=== PATIENT | male | born 1955 | race American Indian/Alaskan Native ===

== ENCOUNTER 2018-02-21 12:00 | Day surgery (SDC) | payer BC ==
[2018-02-21] MEDS: Ringers Lactate 1,000 ML IV ONE ×2 (12:28→12:55)
[2018-02-21] MEDS ORDERED: LIDOCAINE 1% MPF 5 ML VIAL ONE (13:14)
[2018-02-21] MEDS ORDERED: PROPOFOL 200 MG/20 ML VIAL IV ONE (13:14)
--- NOTE | 2018-02-21 14:10 | ENDO RPT ---
[address], [address] FLEXIBLE SIGMOIDOSCOPY PROCEDURE REPORT EXAM DATE: 02/21/2018 PATIENT NAME: Romain Bentley MR #: [id number] BIRTHDATE: 1955 ATTENDING: Guille Garcia Dr STATUS: outpatient SALES COMPENSATION ANALYST: Cecy Patel, Rae Watts RN, and Huma Patel INDICATIONS: The patient is a 62 yr old Male here for a colonoscopy due to hematochezia, anemia, and follow-up of chronic ulcerative colitis PROCEDURE PERFORMED: Flexible Sigmoidoscopy with biopsy MEDICATIONS: Per Anesthesia. ESTIMATED BLOOD LOSS: None CONSENT: The patient understands the risks and benefits of the procedure and understands that these risks include, but are not limited to: sedation, allergic reaction, infection, perforation and/or bleeding. Alternative means of evaluation and treatment include, among others: physical exam, x-rays, and/or surgical intervention. The patient elects to proceed with this endoscopic procedure. DESCRIPTION OF PROCEDURE: During intra-op preparation period all mechanical medical equipment was checked for proper function. Hand hygiene and appropriate measures for infection prevention was taken. After the risks, benefits and alternatives of the procedure were thoroughly explained, Informed consent was verified, confirmed and timeout was successfully executed by the treatment team. A digital rectal exam was performed and revealed revealed a rash. The [id number] ([id number]) and EC-[id number] ([id number]) endoscope was introduced through the anus and advanced to the sigmoid colon. The prep was The quality of the prep was fair.. The instrument was then slowly withdrawn as the colon was fully examined. A pedunculated polyp was found in the sigmoid colon. Colitis was found in the rectum. Multiple biopsies were obtained and sent to pathology. Internal hemorrhoids were found in the anal canal. not performed. The scope was then completely withdrawn from the patient and the procedure terminated. ADVERSE EVENTS: There were no complications. IMPRESSIONS: 1. Couple of 7-8 mm pedunculated polyps in the sigmoid colon (not removed) 2. Severe colitis in the rectum from 20 cm to dentate line (severe from 14-20 cm and 5-8 cm from the dentate line, moderate to severe otherwise in the rectum), s/p random biopsies of sigmoid colon and rectum (rule out possible CMV) 3. Internal hemorrhoids were found in the anal canal 4. Intubation to sigmoid colon RECOMMENDATIONS: await biopsy results RECALL: Return in 2 month(s) for Colonoscopy. Guille Garcia Dr eSigned: Guille Garcia Dr 02/21/2018 2:02 PM cc: Angel Luis Tolentino CPT CODES: ICD9 CODES: 782.1 Rash and other nonspecific skin eruption PATIENT NAME: Romain Bentley MR#: [id number]
--- NOTE | 2018-02-21 14:10 | ENDO RPT ---
[address], [address] FLEXIBLE SIGMOIDOSCOPY PROCEDURE REPORT EXAM DATE: 02/21/2018 PATIENT NAME: Romain Bentley MR #: [id number] BIRTHDATE: 1955 ATTENDING: Guille Garcia Dr STATUS: outpatient BUTTON TUFTER: Cecy Patel, Rae Watts RN, and Huma Patel INDICATIONS: The patient is a 62 yr old Male here for a colonoscopy due to hematochezia, anemia, and follow-up of chronic ulcerative colitis PROCEDURE PERFORMED: Flexible Sigmoidoscopy with biopsy MEDICATIONS: Per Anesthesia. ESTIMATED BLOOD LOSS: None CONSENT: The patient understands the risks and benefits of the procedure and understands that these risks include, but are not limited to: sedation, allergic reaction, infection, perforation and/or bleeding. Alternative means of evaluation and treatment include, among others: physical exam, x-rays, and/or surgical intervention. The patient elects to proceed with this endoscopic procedure. DESCRIPTION OF PROCEDURE: During intra-op preparation period all mechanical medical equipment was checked for proper function. Hand hygiene and appropriate measures for infection prevention was taken. After the risks, benefits and alternatives of the procedure were thoroughly explained, Informed consent was verified, confirmed and timeout was successfully executed by the treatment team. A digital rectal exam was performed and revealed revealed a rash. The EG-[id number] ([id number]) and EC-[id number] ([id number]) endoscope was introduced through the anus and advanced to the sigmoid colon. The prep was The quality of the prep was fair.. The instrument was then slowly withdrawn as the colon was fully examined. A pedunculated polyp was found in the sigmoid colon. Colitis was found in the rectum. Multiple biopsies were obtained and sent to pathology. Internal hemorrhoids were found in the anal canal. not performed. The scope was then completely withdrawn from the patient and the procedure terminated. ADVERSE EVENTS: There were no complications. IMPRESSIONS: 1. Couple of 7-8 mm pedunculated polyps in the sigmoid colon (not removed) 2. Severe colitis in the rectum from 20 cm to dentate line (severe from 14-20 cm and 5-8 cm from the dentate line, moderate to severe otherwise in the rectum), s/p random biopsies of sigmoid colon and rectum (rule out possible CMV) 3. Internal hemorrhoids were found in the anal canal 4. Intubation to sigmoid colon RECOMMENDATIONS: 1. await biopsy results 2. perianal rash therapy RECALL: Return in 2 month(s) for Colonoscopy. Guille Garcia Dr eSigned: Guille Garcia Dr 02/21/2018 2:04 PM Revised: 02/21/2018 2:04 PM cc: Angel Luis Tolentino CPT CODES: ICD9 CODES: 782.1 Rash and other nonspecific skin eruption PATIENT NAME: Romain Bentley MR#: [id number]
[2018-02-21 14:52] VITALS: TEMP 97.4
[2018-02-21] MEDS ORDERED: FLUCONAZOLE 200mg IVPB 200 MG/100 ML BAG IV SCH (15:00)
[2018-02-21 15:26] VITALS: BP 129/67; O2SAT 98
== END 2018-02-21 15:47 | disposition home or self-care (01) ==
LOC: OR 12:00
PROVIDERS: ATTEND Internal Medicine Gastroenterology
PROC: 0DBN8ZX Excision of Sigmoid Colon, Via Natural or Artificial Opening Endoscopic, Diagnostic (ICD-10-PCS; 2018-02-21)
PROC: 0DBP8ZX Excision of Rectum, Via Natural or Artificial Opening Endoscopic, Diagnostic (ICD-10-PCS; principal; 2018-02-21 13:00)
DX: C20 Malignant neoplasm of rectum (principal); K51.90 Ulcerative colitis, unspecified, without complications; D64.9 Anemia, unspecified; K64.8 Other hemorrhoids; K63.5 Polyp of colon; I10 Essential (primary) hypertension; Z79.899 Other long term (current) drug therapy
CPT/HCPCS: 88305; J1450; J2704

== ENCOUNTER 2018-04-25 09:15 | Day surgery (SDC) | payer BC ==
[2018-04-24 19:55] LABS: Magnesium 2.3 mg/dL (1.8-2.4); Phosphorus 1.9 mg/dL (2.5-4.9); Potassium 4.4 mmol/L (3.5-5.1)
[2018-04-24 21:49] LABS: Absolute Lymphocytes (CBC) 2.1 K/uL (0.7-4.9); Absolute Monocytes 0.6 K/uL (0.1-1.3); Basophils % 0.6 % (0-1.3); Hematocrit 23.5 % (39.6-49.0); Lymphocytes % 29.8 % (15.3-44.8); MPV 8.3 fL (7.6-11.3); Monocytes % 8.7 % (3.3-12.3); RBC Red Blood Cell Count 3.02 M/uL (4.33-5.43)
[2018-04-25 12:27] VITALS: O2SAT 100; BMI 44.1
[2018-04-25] MEDS ORDERED: NA CHLORIDE 0.9% 250 ML ONE (14:19)
[2018-04-25 16:55] VITALS: BP 143/72; TEMP 98.2
[2018-04-25 18:22] LABS: Hematocrit 25.8 % (39.6-49.0)
== END 2018-04-25 18:00 | disposition home or self-care (01) ==
LOC: CANPRESDC → DS 09:15
PROVIDERS: ATTEND Internal Medicine Gastroenterology
DX: D50.0 Iron deficiency anemia secondary to blood loss (chronic) (principal)
CPT/HCPCS: 36415; 36430; 80048; 83735; 84100; 85014; 85018; 85025; 86850; 86900; 86901; P9016

== ENCOUNTER → 2018-04-25 | Day surgery (SDC) | payer BC ==
[~2018-04-25] MED LIST: NA CHLORIDE 0.9% 250 ML ONE
== END ==
LOC: LAB 04-24 18:35 → DS 09:15 → EDSTATUS 09:36
PROVIDERS: ATTEND Internal Medicine Gastroenterology
DX: R05 Cough (principal); R07.9 Chest pain, unspecified; R10.13 Epigastric pain; R10.84 Generalized abdominal pain; R63.5 Abnormal weight gain; D50.0 Iron deficiency anemia secondary to blood loss (chronic)
CPT/HCPCS: 36415; 71046; 80048; 83735; 84100; 85025; 86850; 86900; 86901

== ENCOUNTER 2018-05-05 10:30 | Day surgery (SDC) | payer BC ==
[2018-05-02 10:07] LABS: Absolute Lymphocytes (CBC) 1.6 K/uL (0.7-4.9); Absolute Monocytes 0.4 K/uL (0.1-1.3); Absolute Neutrophil 2.8 K/uL (1.8-8.0); Eosinophils % 3.3 % (0-4.4); Hematocrit 28.1 % (39.6-49.0); Lymphocytes % 32.1 % (15.3-44.8); MPV 8.8 fL (7.6-11.3); Monocytes % 7.8 % (3.3-12.3); RBC Red Blood Cell Count 3.62 M/uL (4.33-5.43)
[2018-05-02 10:11] LABS: Protime INR 1.11
[2018-05-02 10:24] LABS: BUN Blood Urea Nitrogen 17 mg/dL (7-18); Bicarbonate 30 mmol/L (21-32); Glucose Level 100 mg/dL (74-106); Potassium 4.3 mmol/L (3.5-5.1); Sodium Level 141 mmol/L (136-145)
[~2018-05-05 10:30] MED LIST changes: +ATROPINE SULF 1 MG/10 ML SYR IV ONE; +FENTANYL CITR 100 MCG/2 ML ONE; +HEPA 1000U/500MLS 2,000 UNIT/1,000 ML BAG IV ONE; +HEPARIN 5000 UNIT/ML 1 ML VIAL ONE; +LIDOCAINE 1% 20 ML MDV ONE; +MIDAZOLAM HCL 2 MG/2 ML INJ ONE; +NA CHLORIDE 0.9% 0 ML ONE; -NA CHLORIDE 0.9% 250 ML ONE; +NA CHLORIDE 0.9% 500 ML ONE; +NICARDIPINE HCL 25 MG/10 ML IV ONE; +NITROGLYCERIN 100 MCG/ML SYR (for cath lab use only) IV ONE; +NITROGLYCERIN/D5W 25 MG/250 ML BTL IV ONE
[2018-05-05 10:48] VITALS: TEMP 97.1
[2018-05-05 12:22] VITALS: BP 120/56; O2SAT 100
--- NOTE | 2018-05-05 20:35 | OP ---
Surgeon: Rusty Friend MD Additional Attending Physician: Angel Luis Tolentino M.D. Procedure: Left heart catheterization with coronary and left ventricular angiography. Findings: The patient has normal coronary arteries, normal ejection fraction, and normal pressures. Procedure In Detail: The patient was brought to the cardiac catheterization lab in a fasting state, sedated with Versed and fentanyl, prepared and draped in usual sterile fashion. Right radial approac h was used. The tissues around the right radial artery were anesthetized with 1% lidocaine. The art eduar was entered using a 21-gauge needle, cannulated with a 0.748-apym-txvqeomj guidewire. Then, usin g the modified Seldinger technique, a 6-Bel[place]ian Terumo radial sheath was placed. Sheath was flushed, and a radial cocktail was administered consisting of nicardipine, heparin, and nitroglycerin. We dir ected a TIG catheter into the ascending aorta using fluoroscopy and a [employer] Glidewire with a short-r adius J-tip. We angiogrammed left coronary, right coronary, left ventricle, all using the same TIG c atheter. At the end of the procedure, the catheter was drawn over a wire. The sheath was flushed an d removed, and the arteriotomy was closed using a TR Band large size. Complications From The Procedure: None. ESPERANZA/KEISHA Voice ID: [id number] Report ID: [id number]
== END 2018-05-05 12:27 | disposition home or self-care (01) ==
LOC: CCL 10:30
PROVIDERS: ATTEND Internal Medicine
DX: I20.9 Angina pectoris, unspecified (principal); R06.02 Shortness of breath; I10 Essential (primary) hypertension; Z79.899 Other long term (current) drug therapy; Z87.891 Personal history of nicotine dependence; Z83.2 Family history of diseases of the blood and blood-forming organs and certain disorders involving the immune mechanism
CPT/HCPCS: 36415; 80048; 85025; 85610; 85730; 93458; C1893; J0583; J1644; J2250; J3010

== ENCOUNTER 2018-06-05 17:17 | Observation (INO) | payer BC ==
--- OUTSIDE RECORDS SUMMARY | 2018-06-05 17:20 | XMS REPORT | Clinical Summary ---
:1955 Author Organization [facility] Address [address] [place] [address] Care Team Providers Name Role Phone Herberth Tolentino MD Primary Care Provider Allergies No Known Allergies Medications Medication Sig Dispensed Refills Start Date End Date Status mesalamine (LIALDA) 1.2 Take 1,200 mg by 0 Active gram EC tablet mouth daily with breakfast. irbesartan (AVAPRO) 75 Take 75 mg by 0 Active MG tablet mouth daily. colestipol (COLESTID) 1 Take 3 g by 0 Active gram tablet mouth 3 (three) times a day. Bifidobacterium infantis Take by mouth 0 Active (ALIGN ORAL) daily. MULTIVITAMIN ORAL Take by mouth. 0 Active omeprazole (PriLOSEC) 40 Take 40 mg by 0 Active MG capsule mouth daily. sodium,potassium,mag Please take as 354 mL 0 06/02/2018 Active sulfates (SUPREP BOWEL directed by PREP KIT) 17.5-3.13-1.6 physician. gram recon soln mirabegron (MYRBETRIQ) Take 50 mg by 0 Active 50 mg tablet extended mouth daily. release 24 hr silodosin (RAPAFLO) 8 mg Take 8 mg by 0 Active capsule mouth daily. vedolizumab (ENTYVIO) Infuse 300 mg 0 Active 300 mg recon soln IV into a venous solution catheter Every 2 months. Active Problems No known active problems Encounters Date Type Specialty Care Team Description 06/05/2018 Pre-Admit Testing Pre-Admission Testing Francisco Julian Preop testing Appointment MD [facility] (Primary Dx) 06/05/2018 Hospital Encounter Radiology Francisco Julian Rectal cancer (HCC) MD Vincent Wells Bincy Paulose, MD 06/02/2018 Orders Only General Surgery Francisco Julian MD 06/02/2018 Orders Only General Surgery Francisco Julian Foreign body in MD Russell alimentary tract, initial encounter (Primary Dx) 05/20/2018 Orders Only General Surgery Francisco Julian MD 05/19/2018 Orders Only General Surgery Francisco Julian Rectal cancer (HCC) MD Russell (Primary Dx) 05/15/2018 Office Visit General Surgery Francisco Julian Abdominal pain, generalized (Primary Dx); MD Russell Other ulcerative colitis with complication (HCC); Full incontinence of feces; Rectal bleeding 03/07/2018 Documentation Gastroenterology Isabel Blanca LVN 03/07/2018 Orders Only Gastroenterology Evangelist, Rectal cancer (HCC) MOUSTAPHA Hall (Primary Dx) after 06/04/2017 Family History Medical History Relation Name Comments Asthma Brother Diabetes Father Heart disease Father Hypertension Father Hypertension Mother Asthma Sister Relation Name Status Comments Brother Father Mother Sister Social History Tobacco Use Types Packs/Day Years Used Date Former Smoker Cigarettes 2 20 Quit: 1993 Smokeless Tobacco: Never Used Alcohol Use Drinks/Week oz/Week Comments Yes rare/social Sex Assigned at Date Recorded Not on file Job Start Date Occupation Industry Not on file Not on file Not on file Travel History Travel Start Travel End No recent travel history available. Last Filed Vital Signs Vital Sign Reading Time Taken Blood Pressure 130/66 06/05/2018 10:44 AM CDT Pulse 81 06/05/2018 10:44 AM CDT Temperature 36.2 C (97.1 F) 06/05/2018 10:44 AM CDT Respiratory Rate 18 06/05/2018 10:44 AM CDT Oxygen Saturation 99% 06/05/2018 10:44 AM CDT Inhaled Oxygen Concentration - - Weight 132 kg (292 lb) 06/05/2018 10:44 AM CDT Height 175.3 cm (5' 9") 06/05/2018 7:19 AM CDT Body Mass Index 43.12 06/05/2018 10:44 AM CDT Plan of Treatment Date Type Specialty Care Team Description 06/13/2018 Hospital Encounter Gastroenterology Francisco Julian MD [address] [facility] [facility] [facility] [address] [place] [address] [phone] 06/13/2018 Surgery Gastroenterology Francisco Julian COLONOSCOPY MD [facility] [address] [facility] [place] [address] [phone] 06/24/2018 Hospital Encounter General Surgery Francisco Julian MD [address] [facility] [facility] [facility] [address] [place] [address] [phone] 06/24/2018 Anesthesia Event General Surgery AdamayamilkajoséHarmonydereck, SERVICENOW ADMINISTRATOR DEVELOPER [address] [place] [address] 06/24/2018 Surgery General Surgery Francisco Julian ROBOTIC ASSISTED MD Russell LAPAROSCSOPIC TOTAL [address] [place] [address] [phone] Health Maintenance Due Date Last Done Comments COLON CANCER SCREENING 2006 SHINGLES VACCINES (#1) 2006 INFLUENZA VACCINE 10/16/2017 Procedures Procedure Name Priority Date/Time Associated Comments Diagnosis SMEAR REVIEW Routine 06/05/2018 10:58 Results for this AM CDT procedure are in the results section. ESTIMATED GFR Routine 06/05/2018 10:58 Results for this AM CDT procedure are in the results section. HEMOGLOBIN A1C Routine 06/05/2018 10:58 Preop testing Results for this AM CDT procedure are in the results section. COMPREHENSIVE Routine 06/05/2018 10:58 Preop testing Results for this METABOLIC PANEL AM CDT procedure are in the results section. CBC WITH PLATELET AND Routine 06/05/2018 10:58 Preop testing Results for this DIFFERENTIAL AM CDT procedure are in the results section. MRI PELVIS W WO Routine 06/05/2018 9:50 Rectal cancer (HCC) Results for this CONTRAST AM CDT procedure are in the results section. POC CREATININE Routine 06/05/2018 8:29 Results for this AM CDT procedure are in the results section. ESTIMATED GFR Routine 06/05/2018 8:29 Results for this AM CDT procedure are in the results section. after 06/04/2017 Results Smear review (06/05/2018 10:58 AM CDT) Platelet slide review Britni adequate [facility] Anisocytosis Moderate [facility] Tear drop cells Occasional [facility] Ovalocytes Moderate [facility] Enlarged platelets Moderate (A) [facility] Giant platelets Occasional [facility] Performing Organization Address City/[facility] Unitcode Phone Number [facility] DEPARTMENT OF PATHOLOGY AND [address] [place], [place] [address] [place] [address] Estimated GFR (06/05/2018 10:58 AM CDT)Only the most recent of2 resultswithin the time period is included. Estimated GFR >=90 mL/min/1.73 m2 [facility] Comment: HOSPITAL CatergoryUnitsInterpretation G1 >=90 Normal or high G2 60-89Mildly decreased [id number] to moderately decreased B9m57-56Meuactohnc to severely decreased G4 15-29Severely decreased G5 <15Kidney failure The eGFR was calculated using the Chronic Kidney Disease Epidemiology Collaboration (CKD-EPI) equation. Interpretation is based on recommendations of the National Kidney Foundation-Kidney Disease Outcomes Quality Initiative (NKF-KDOQI) published in 2014. Specimen Plasma specimen Performing Organization Address City/[facility]/Zipcode Phone Number [facility]PART[facility] OF [facility]OLOGY AND [address] [place] [address] CBC with platelet and differential (06/05/2018 10:58 AM CDT) WBC 7.15 4.50 - 11.00 k/uL [facility] RBC 2.85 (L) 4.40 - 6.00 m/uL [facility] HGB 6.4 (LL) 14.0 - 18.0 g/dL [facility] Comment: HOSPITAL HGB_results called to and read back by Kylie Pang/ROYER at2018 13:27 by AD__. HCT 23.5 (L) 41.0 - 51.0 % [facility] MCV 82.5 82.0 - 100.[address] [facility] MCH 22.5 (L) 27.0 - 34.[address] [facility] MCHC 27.2 (L) 31.0 - 37.0 g/dL [facility] RDW - SD 54.2 37.0 - 55.[address] [facility] MPV 10.9 8.8 - 13.[address] [facility] Platelet count 215 150 - 400 k/uL [facility] Nucleated RBC 0.00 /[address] [facility] Neutrophils 64.7 39.0 - 69.0 % [facility] Lymphocytes 24.3 (L) 25.0 - 45.0 % [facility] Monocytes 8.0 0.0 - 10.0 % [facility] Eosinophils 2.4 0.0 - 5.0 % [facility] Basophils 0.3 0.0 - 1.0 % [facility] Immature granulocytes 0.3Comment: "Immature 0.0 - 1.0 % [facility] granulocytes" [facility] (promyelocytes, myelocytes, metamyelocytes) Specimen Blood Performing Organization Address City/[facility] Phone Number [facility] DEPARTMENT OF [facility]OLOGY AND [address] [place] [address] Hemoglobin A1c (06/05/2018 10:58 AM CDT) Hemoglobin A1C 5.8 (H) 4.0 - 5.6 % [facility] Comment: HbA1c cutoffs for diagnosing diabetes: 4.0% - 5.6%=normal 5.7% - 6.4%=increased risk for diabetes (prediabetes) >=6.5%=diabetes Goals for glycemic control (ADA 2016) < 7.0%Target for non adults with diabetes. More or less stringent targets may be appropriate for individual patients. <7.5% Target for Children and adolescents with type 1 diabetes. Specimen Blood Performing Organization Address City/[facility]code Phone Number [facility]PART[facility] OF [facility]OLOGY AND [address] [place] [address] Comprehensive metabolic panel (06/05/2018 10:58 AM CDT) Sodium 142 135 - 148 mEq/L [facility] Potassium 4.2 3.5 - 5.0 mEq/L [facility] Chloride 107 98 - 112 mEq/L [facility] CO2 26 24 - 31 mEq/L [facility] Anion gap 9@ANIO 7 - 15 mEq/L [facility] BUN 18 8 - 23 mg/dL [facility] Creatinine 0.79 0.70 - 1.20 mg/dL [facility] Glucose 143 (H) 65 - 99 mg/dL [facility] Calcium 8.7 (L) 8.8 - 10.2 mg/dL [facility] Protein 7.4 6.3 - 8.3 g/dL [facility] Comment: HOSPITAL 4.6-7.0 g/dL 1 week 4.4-7.6 g/dL 7 months-1year5.1-7.3 g/dL 1-2 years5.6-7.5 g/dL >3 years6.0-8.0 g/dL 18-150 6.3-8.3 g/dL Albumin 2.7 (L) 3.5 - 5.0 g/dL [facility] A/G ratio 0.6 (L) 0.7 - 3.8 [facility] Alkaline phosphatase 85 40 - 129 U/L [facility] AST 42 10 - 50 U/L [facility] ALT 49 5 - 50 U/L [facility] Total bilirubin 0.4 0.0 - 1.2 mg/dL [facility] Specimen Plasma specimen Performing Organization Address City/State/Zipcode Phone Number [facility] DEPARTMENT OF PATHOLOGY AND [address] [place] [address] GENOMIC MEDICINE [address] [address] MRI Pelvis W Wo Contrast (06/05/2018 9:50 AM CDT) Narrative Performed At EXAMINATION:MRI PELVIS W WO CONTRAST [facility]IANT CLINICAL HISTORY:C20 Malignant neoplasm of rectum, Rectal Cancer Staging COMPARISON:None. TECHNIQUE: Multiplanar, multisequence MRI of the pelvis with and without contrast material with a rectal cancer protocol. High-resolution T2 images were obtained. IMPRESSION: 1. There is a mid rectal tumor. The inferior margin of the tumor is 8.5 cm from the anal verge and 3.6 cm from the top of the anal sphincter complex. 2. The tumor extends 4 cm in length.It has an annular morphology. 3. There is mild extension of tumor into the mesorectal fat consistent with an early MRI stage T3 tumor. For example posteriorly, the tumor invades 3 mm beyond the outer edge of the muscularis propria ( series 7, image 13 and 16). There is a large amount of mesorectal and presacral fat posteriorly. The shortest distance from the tumor margin to the mesorectal fascia is anteriorly and measures 9 mm. 4. There are some small nonspecific mesorectal lymph nodes, largest measures 6 mm. There are some enlarged extra mesorectal lymph nodes including the bilateral inguinal, external iliac chains and a slig htly prominent left obturator node.for example, a 1.6 cm left external iliac node and a 6 mm left obturator node. These could be reactive, metastatic adenopathy not excluded. 5. No evidence of extramural vascular invasion. 6. Other:No focal marrow replacing abnormality. [id number] Procedure Note Hm Interface, Radiology Results Incoming - 06/05/2018 2:37 PM CDT EXAMINATION: MRI PELVIS W WO CONTRAST CLINICAL HISTORY: C20 Malignant neoplasm of rectum, Rectal Cancer Staging COMPARISON: None. TECHNIQUE: Multiplanar, multisequence MRI of the pelvis with and without contrast material with a rectal cancer protocol. High-resolution T2 images were obtained. IMPRESSION: 1. There is a mid rectal tumor. The inferior margin of the tumor is 8.5 cm from the anal verge and 3.6 cm from the top of the anal sphincter complex. 2. The tumor extends 4 cm in length. It has an annular morphology. 3. There is mild extension of tumor into the mesorectal fat consistent with an early MRI stage T3 tumor. For example posteriorly, the tumor invades 3 mm beyond the outer edge of the muscularis propria (series 7, image 13 and 16). There is a large amount of mesorectal and presacral fat posteriorly. The shortest distance from the tumor margin to the mesorectal fascia is anteriorly and measures 9 mm. 4. There are some small nonspecific mesorectal lymph nodes, largest measures 6 mm. There are some enlarged extra mesorectal lymph nodes including the bilateral inguinal, external iliac chains and a slightly prominent left obturator node. for example, a 1.6 cm left external iliac node and a 6 mm left obturator node. These could be reactive, metastatic adenopathy not excluded. 5. No evidence of extramural vascular invasion. 6. Other: No focal marrow replacing abnormality. [id number] Performing Organization Address City/[facility]/Zipcode Phone Number [facility] [address] [place] [address] POC creatinine (06/05/2018 8:29 AM CDT) POC creatinine 0.7 0.7 - 1.2 mg/dl [facility] Comment: Meter ID: [id number] Lpta: Adarsh Kaufman Specimen Blood Performing Organization Address City/[facility]/Zipcode Phone Number [facility] DEPARTMENT OF PATHOLOGY AND [address] [place] [address] [facility] [address] [place] [address] after 06/04/2017 Insurance Payer Benefit Plan / Group Subscriber ID Type Phone Address BCBS BCBS CHOICE PPO/[employer] PPO xxxxxxxxxxxx PPO [phone] [id number] (Work) Advance Directives Patient has advance care planning documents on file. For more information, please contact:[facility] [place] [id number]
--- NOTE | 2018-06-05 18:34 | P.HP ---
Certification for Inpatient Patient admitted to: Observation With expected LOS: <2 Midnights Patient will require the following post-hospital care: None Practitioner: I am a practitioner with admitting privileges, knowledge of patient current condition, hospital course, and medical plan of care. Services: Services provided to patient in accordance with Admission requirements found in Title 42 Section 412.3 of the Code of Federal Regulations Patient History Date of Service: 06/05/18 Primary Care Provider: Dr. Tolentino; GI-Dr. Garcia; Surgery-Dr. Julian Reason for admission: Anemia History of Present Illness: 63-year-old Kos[place] male presented to the emergency room after he was told that he had abnormal lab. Patient has history of colon cancer and ulcerative colitis. He went to see his surgeon for preop today. Patient has been reporting increasing rectal bleeding over the last several weeks. Patient is in process of getting colorectal surgery at [facility] on June 24. In April he was cleared by cardiology with recent heart catheterization. Patient also reports that he has received blood transfusion to maintain his hemoglobin. He had lab drawn today. He was reported as a low. He was told to go to the ER for further evaluation. In the ER patient appears stable. Vital signs within normal range. He denies any significant fever, chills. He denies any significant abdominal pain, nausea vomiting. He reports rectal bleeding but this is chronic. Hemoglobin 7.1 in the emergency room. Allergies No Known Drug Allergies Allergy (Uncoded 05/02/18 09:20) Unknown Home medications list reviewed: Yes Home Medications: Cholecalciferol (Vitamin D3) [Vitamin D] 1,000 unit PO DAILY 07/15/14 Colestipol HCl [Colestid] 2 gm PO BID 07/15/14 Multivitamin [One-A-Day Essential] 1 each PO DAILY 07/15/14 Bifidobacterium Infantis [Align] 4 mg PO DAILY 02/21/18 Mesalamine 2 tab PO BID 02/21/18 Vedolizumab [Entyvio] 300 mg IV SEECOM 02/21/18 Doxycycline Hyclate 100 mg PO BID 04/25/18 Irbesartan [Avapro] 75 mg PO DAILY 04/25/18 - Past Medical/Surgical History -: Hypertension -: Ulcerative colitis -: Colon cancer -: Cholecystectomy -: Liver cyst drained Psychosocial/ Personal History: Patient is . He has 1 child. Patient still currently works. - Family History Father -: Heart disease, Diabetes Brother -: Heart disease, Diabetes Sister -: Heart disease, Diabetes - Social History Smoking Status: Former smoker Alcohol use: Yes CD- Drugs: No Caffeine use: No Place of Residence: Home Review of Systems General: Weakness, As per HPI Eyes: Unremarkable ENT: Unremarkable Respiratory: Unremarkable Cardiovascular: Unremarkable Gastrointestinal: Hematochezia, As per HPI Genitourinary: Unremarkable Musculoskeletal: Pedal edema, As per HPI Integumentary: Unremarkable Neurological: Unremarkable Lymphatics: Unremarkable Physical Examination - Physical Exam General: Alert, In no apparent distress, Oriented x3, Cooperative HEENT: Atraumatic, Normocephalic, PERRLA, Mucous membr. moist/pink Neck: Supple, No Thyromegaly Respiratory: Clear to auscultation bilaterally, Normal air movement Cardiovascular: Normal pulses, Regular rate/rhythm Gastrointestinal: Normal bowel sounds, Soft and benign, Non-distended, No tenderness, No masses, No rebound, No guarding Musculoskeletal: No contractures, No erythema, No tenderness, No warmth Integumentary: No erythema, No warmth, No cyanosis, Tenderness/swelling (1+ pitting edema to the lower extremities bilateral) Neurological: Normal speech, Normal strength at 5/5 x4 extr, Normal tone, Normal affect Assessment and Plan - Plan Impression: Acute on chronic anemia secondary to lower GI bleed related to colon cancer complicated with history of ulcerative colitis Hypertension Plan: Acute on chronic anemia secondary to lower GI bleed related to colon cancer complicated with history of ulcerative colitis: Patient will be admitted for transfusion. I will plan to transfuse 2 units. Will recheck hemoglobin afterwards. Patient will received Lasix IV after each unit. Will try to get in contact with his veterinary nurse and/or rectal surgeon to further address his current condition. Will obtain stool cultures. Patient is to have colorectal surgery June 24. He is to have a colonoscopy next week. Will discuss case further with specialty care. Anticipate discharge tomorrow if hemoglobin improved and stable. Hypertension: Will need to restart home medication. Patient reports recent cardiac evaluation in April in preparation for surgery. He has been cleared for surgery. Discharge Plan: Home Plan to discharge in: 24 Hours - Advance Directives Does patient have a Living Will: No Does patient have a Durable POA for Healthcare: No - Code Status/Comfort Care Code Status Assessed: Yes (Patient full code.) Time Spent Managing Pts Care (In Minutes): 55
--- NOTE | 2018-06-05 19:01 | ER ---
Nurse's Notes [facility] Name: Romain Bentley Age: 63 yrs Sex: Male : 1955 Arrival Date: 06/05/2018 Time: 17:21 Bed 26 Private MD: Angel Luis Tolentino B Diagnosis: Anemia, unspecified Presentation: 06/05 17:44 Presenting complaint: Patient states: Pt reports he was at [facility] with Dr. Herron, pt ea had labs drawn. Pt states he was instructed by Dr. Garcia to come to the ED due to Hgb being 6.1, pt reports bright red stools, has a history of ulcerative colitis and colon cancer. Pt reports being transfused a few months ago. Transition of care: patient was not received from another setting of care. Onset of symptoms was June 05, 2018. Risk Assessment: Do you want to hurt yourself or someone else? Patient reports no desire to harm self or others. Initial Sepsis Screen: Does the patient meet any 2 criteria? No. Patient's initial sepsis screen is negative. Does the patient have a suspected source of infection? No. Patient's initial sepsis screen is negative. Care prior to arrival: None. 17:44 Method Of Arrival: Ambulatory ea 17:44 Acuity: JAQUAN 2 ea Triage Assessment: 17:51 General: Appears in no apparent distress. Behavior is calm, cooperative, appropriate ea for age. Pain: Denies pain. Cardiovascular: Patient's skin is warm and dry. Respiratory: Airway is patent Respiratory effort is even, unlabored, Respiratory pattern is regular, symmetrical. Historical: - Allergies: 17:50 NKDA; ea - Home Meds: 17:50 omeprazole 40 mg Oral cpDR 1 cap once daily [Active]; Lialda 1.2 gram Oral TbEC 4 tabs ea once daily [Active]; irbesartan-hydrochlorothiazide 300-12.5 mg Oral tab 1 tab once daily [Active]; colestipol 1 gram Oral tab four times a day [Active]; Clobetasol Propionate Topical [Active]; - PMHx: 17:50 ulcerative colitis; Hypertension; cyst on liver; ea - PSHx: 17:50 Cholecystectomy; polyps removed from colon; ea - Immunization history:: Adult Immunizations up to date. - Social history:: Smoking status: Patient/guardian denies using tobacco, but has a distant history of tobacco abuse. - Ebola Screening: : No symptoms or risks identified at this time. Screenin:50 Abuse screen: Denies threats or abuse. Nutritional screening: No deficits noted. ea Tuberculosis screening: No symptoms or risk factors identified. Fall Risk None identified. Assessment: 17:50 General: Appears in no apparent distress. comfortable, Behavior is calm, cooperative, ca1 appropriate for age. Pain: Denies pain. Neuro: Level of Consciousness is awake, alert, obeys commands, Oriented to person, place, time, situation. Cardiovascular: Heart tones S1 S2 present Capillary refill < 3 seconds Patient's skin is warm and dry. Respiratory: Airway is patent Respiratory effort is even, unlabored, Respiratory pattern is regular, symmetrical, Breath sounds are clear bilaterally. GI: Abdomen is round non-distended, Bowel sounds present X 4 quads. Abd is soft and non tender X 4 quads. GI: Reports bloody stool. : No deficits noted. No signs and/or symptoms were reported regarding the genitourinary system. EENT: No deficits noted. No signs and/or symptoms were reported regarding the EENT system. Derm: Skin is intact, is healthy with good turgor, Skin is pink, warm \T\ dry. Musculoskeletal: Circulation, motion, and sensation intact. Capillary refill < 3 seconds. 17:50 Reassessment: Dr. Rausch at [facility]. ca1 18:50 Reassessment: Patient appears in no apparent distress at this time. Patient and/or ca1 family updated on plan of care and expected duration. Pain level reassessed. Patient is alert, oriented x 3, equal unlabored respirations, skin warm/dry/pink. 19:50 Reassessment: Patient appears in no apparent distress at this time. Patient and/or ca1 family updated on plan of care and expected duration. Pain level reassessed. Patient is alert, oriented x 3, equal unlabored respirations, skin warm/dry/pink. 20:27 Reassessment: BT started. Marlon Duarte RN verified blood. Stayed with pt for 15 ca1 minutes for monitoring. No complaints made. Lung sounds clear, VS stable. SEE Chart for additional notes. 21:00 Reassessment: Pt ate dinner at beside with and ambulated to restroom. ca1 Vital Signs: 17:47 BP 123 / 57; Pulse 77; Resp 16; Temp 98; Pulse Ox 100% on R/A; Weight 133.81 kg; Height ea 5 ft. 9 in. (175.26 cm); Pain 0/10; 18:23 BP 119 / 52; Pulse 87; Resp 19; Pulse Ox 100% on R/A; ca1 19:20 BP 123 / 79; Pulse 82; Resp 19; Pulse Ox 98% on R/A; ca1 20:20 BP 137 / 75; Pulse 84; Resp 19; Temp 98.4(O); Pulse Ox 100% on R/A; ca1 20:27 ca1 20:57 BP 132 / 72; Pulse 81; Resp 19; Temp 97.9; Pulse Ox 100% on R/A; ca1 17:47 Body Mass Index 43.56 (133.81 kg, 175.26 cm) ea 20:27 SEE pt's chart for VS monitoring during BT ca1 ED Course: 17:21 Patient arrived in ED. dl4 17:22 Angel Luis Tolentino MD is Private Physician. dl4 17:25 Cristobal Kam MD is Attending Physician. kdr 17:45 Arm band placed on right wrist. Patient placed in an exam room, on a stretcher, on ea pulse oximetry. 17:47 Triage completed. ea 17:48 Patient has correct armband on for positive identification. Bed in low position. Call ea light in reach. Side rails up X 1. 17:51 Estefani Maria, SIENNA is Primary Nurse. ca1 19:00 Reji Rausch DO is Hospitalizing Provider. kdr 19:25 Inserted saline lock: 20 gauge in left forearm, using aseptic technique. rv 21:04 No provider procedures requiring assistance completed. Patient admitted, IV remains in ca1 place. Administered Medications: No medications were administered Outcome: 19:01 Decision to Hospitalize by Provider. kdr 21:10 Admitted to Med/surg accompanied by nurse, accompanied by tech, family with patient, ca1 via wheelchair, room 224, with chart, Other with blood and infusion pump Report called to Rupal Fitzgerald RN 21:10 Condition: stable ca1 21:10 Instructed on the need for admit. 21:38 Patient left the ED. rv Signatures: Cristobal Kam MD MD kdr Antunez, Elena, RN RN ea Vicente, Ronaldo, RN RN Angel Landaverde dl4 Estefani Maria RN RN ca1 Corrections: (The following items were deleted from the chart) 21:12 20:27 Reassessment: BT started. Marlon Duarte RN verified blood. Stayed with pt for ca1 15 minutes for monitoring. No complaints made. ca1
--- NOTE | 2018-06-05 19:01 | EDPHYS ---
Physician Documentation [facility] Name: Romain Bentley Age: 63 yrs Sex: Male : 1955 Arrival Date: 06/05/2018 Time: 17:21 Bed 26 Private MD: Angel Luis Tolentino B ED Physician Cristobal Kam HPI: 06/05 17:26 This 63 yrs old Other Male presents to ER via Unassigned with complaints of Blood kdr Transfusion, Abnormal Lab Results. 17:26 The patient has a history of rectal cancer and has been anemic. Was recently noted to kdr have a Hgb of 6.9. Was sent to the outside lab for blood work today for re-check and transfusion if needed. Onset: The symptoms/episode began/occurred at an unknown time. Severity of symptoms: At their worst the symptoms were mild in the emergency department the symptoms are unchanged. The patient has experienced similar episodes in the past, a few times. The patient has been recently seen by a physician: the patient's primary care provider. Historical: - Allergies: 17:50 NKDA; ea - Home Meds: 17:50 omeprazole 40 mg Oral cpDR 1 cap once daily [Active]; Lialda 1.2 gram Oral TbEC 4 tabs ea once daily [Active]; irbesartan-hydrochlorothiazide 300-12.5 mg Oral tab 1 tab once daily [Active]; colestipol 1 gram Oral tab four times a day [Active]; Clobetasol Propionate Topical [Active]; - PMHx: 17:50 ulcerative colitis; Hypertension; cyst on liver; ea - PSHx: 17:50 Cholecystectomy; polyps removed from colon; ea - Immunization history:: Adult Immunizations up to date. - Social history:: Smoking status: Patient/guardian denies using tobacco, but has a distant history of tobacco abuse. - Ebola Screening: : No symptoms or risks identified at this time. ROS: 18:58 Constitutional: Negative for fever, chills, and weight loss, Eyes: Negative for injury, kdr pain, redness, and discharge, ENT: Negative for injury, pain, and discharge, Neck: Negative for injury, pain, and swelling, Cardiovascular: Negative for chest pain, palpitations, and edema, Respiratory: Negative for shortness of breath, cough, wheezing, and pleuritic chest pain, Back: Negative for injury and pain, : Negative for injury, bleeding, discharge, and swelling, MS/Extremity: Negative for injury and deformity, Skin: Negative for injury, rash, and discoloration, Neuro: Negative for headache, weakness, numbness, tingling, and seizure activity. Psych: Negative for depression, anxiety, suicide ideation, homicidal ideation, and hallucinations, Allergy/Immunology: Negative for hives, rash, and allergies, Endocrine: Negative for neck swelling, polydipsia, polyuria, polyphagia, and marked weight changes, Hematologic/Lymphatic: Negative for swollen nodes, abnormal bleeding, and unusual bruising. 18:58 Abdomen/GI: Positive for abdominal pain, nausea, diarrhea, rectal bleeding, Negative for abdominal cramps, abdominal distension, dysphagia, hematemesis, black/tarry stool, rectal pain. Exam: 18:58 Constitutional: This is a well developed, well nourished patient who is awake, alert, kdr and in no acute distress. Head/Face: Normocephalic, atraumatic. Eyes: Pupils equal round and reactive to light, extra-ocular motions intact. Lids and lashes normal. Conjunctiva and sclera are non-icteric and not injected. Cornea within normal limits. Periorbital areas with no swelling, redness, or edema. Neck: Trachea midline, no thyromegaly or masses palpated, and no cervical lymphadenopathy. Supple, full range of motion without nuchal rigidity, or vertebral point tenderness. No Meningismus. Chest/axilla: Normal chest wall appearance and motion. Nontender with no deformity. No lesions are appreciated. Cardiovascular: Regular rate and rhythm with a normal S1 and S2. No gallops, murmurs, or rubs. Normal PMI, no JVD. No pulse deficits. Respiratory: Lungs have equal breath sounds bilaterally, clear to auscultation and percussion. No rales, rhonchi or wheezes noted. No increased work of breathing, no retractions or nasal flaring. Abdomen/GI: Soft, non-tender, with normal bowel sounds. No distension or tympany. No guarding or rebound. No evidence of tenderness throughout. Back: No spinal tenderness. No costovertebral tenderness. Full range of motion. Skin: Warm, dry with normal turgor. Normal color with no rashes, no lesions, and no evidence of cellulitis. MS/ Extremity: Pulses equal, no cyanosis. Neurovascular intact. Full, normal range of motion. Neuro: Awake and alert, GCS 15, oriented to person, place, time, and situation. Cranial nerves II-XII grossly intact. Motor strength 5/5 in all extremities. Sensory grossly intact. Cerebellar exam normal. Normal gait. Psych: Awake, alert, with orientation to person, place and time. Behavior, mood, and affect are within normal limits. Vital Signs: 17:47 BP 123 / 57; Pulse 77; Resp 16; Temp 98; Pulse Ox 100% on R/A; Weight 133.81 kg; Height ea 5 ft. 9 in. (175.26 cm); Pain 0/10; 18:23 BP 119 / 52; Pulse 87; Resp 19; Pulse Ox 100% on R/A; ca1 19:20 BP 123 / 79; Pulse 82; Resp 19; Pulse Ox 98% on R/A; ca1 20:20 BP 137 / 75; Pulse 84; Resp 19; Temp 98.4(O); Pulse Ox 100% on R/A; ca1 20:27 ca1 20:57 BP 132 / 72; Pulse 81; Resp 19; Temp 97.9; Pulse Ox 100% on R/A; ca1 17:47 Body Mass Index 43.56 (133.81 kg, 175.26 cm) ea 20:27 SEE pt's chart for VS monitoring during BT ca1 MDM: 18:58 Data reviewed: vital signs, nurses notes, lab test result(s). Counseling: I had a kdr detailed discussion with the patient and/or guardian regarding: the historical points, exam findings, and any diagnostic results supporting the discharge/admit diagnosis, lab results, the need for further work-up and treatment in the hospital. 19:01 Patient medically screened. kdr 06/05 17:29 Order name: Type and Screen EDMS 06/05 17:53 Order name: Bb Add On eb 06/05 18:02 Order name: Packed RBC Leukored -1 EDMS Administered Medications: No medications were administered Disposition: 06/05/18 19:01 Hospitalization ordered by Reji Rausch for Observation. Preliminary diagnosis is Anemia, unspecified. - Bed requested for Telemetry/MedSurg (observation). - Status is Observation. rv - Condition is Fair. - Problem is an acute exacerbation. - Symptoms are unchanged. UTI on Admission? No Signatures: Dispatcher [employer] EDMS Cristobal Kam MD MD kdr Garcia, Cindy, RN RN cg Nannette Davis, RN RN Marlon Pineda, RN RN rv Corrections: (The following items were deleted from the chart) 19:43 19:01 Hospitalization Ordered by [facility] for Observation. Preliminary cg diagnosis is Anemia, unspecified. Bed requested for Telemetry/MedSurg (observation). Status is Observation. Condition is Fair. Problem is an acute exacerbation. Symptoms are unchanged. UTI on Admission? No. kdr 20:32 19:43 06/05/2018 19:01 Hospitalization Ordered by [facility] for Observation. cg Preliminary diagnosis is Anemia, unspecified. Bed requested for Telemetry/MedSurg (observation). Status is Observation. Condition is Fair. Problem is an acute exacerbation. Symptoms are unchanged. UTI on Admission? No. cg 21:38 20:32 06/05/2018 19:01 Hospitalization Ordered by [facility] for Observation. rv Preliminary diagnosis is Anemia, unspecified. Bed requested for Telemetry/MedSurg (observation). Status is Observation. Condition is Fair. Problem is an acute exacerbation. Symptoms are unchanged. UTI on Admission? No. cg
[2018-06-05] MEDS ORDERED: NA CHLORIDE 0.9% 250 ML ONE (19:34)
[2018-06-05] MEDS ORDERED: HYDRALAZINE HCL 20 MG/ML VIAL IV PRN (21:12)
[2018-06-05] MEDS ORDERED: ACETAMINOPHEN 500 MG TAB PO PRN (21:12)
[2018-06-05] MEDS ORDERED: ONDANSETRON 4 MG/2 ML VIAL IV PRN (21:12)
[2018-06-05] MEDS ORDERED: SODIUM CHLORIDE 0.9% 10ML INJ IV PRN (21:12)
[2018-06-05] MEDS ORDERED: FUROSEMIDE 20 MG/ 2ML VIAL IV SCH (22:22)
[2018-06-05 22:38] VITALS: BMI 43.8
[2018-06-05 23:11] VITALS: O2SAT 98
[2018-06-06] MEDS ORDERED: FUROSEMIDE 20 MG/ 2ML VIAL IV ONE (03:29)
[2018-06-06 04:24] LABS: Absolute Lymphocytes (CBC) 2.1 K/uL (0.7-4.9); Absolute Monocytes 0.7 K/uL (0.1-1.3); Absolute Neutrophil 2.6 K/uL (1.8-8.0); Basophils % 0.9 % (0-1.3); Eosinophils % 3.6 % (0-4.4); Hematocrit 27.8 % (39.6-49.0); Lymphocytes % 37.2 % (15.3-44.8); MPV 8.6 fL (7.6-11.3); Monocytes % 11.8 % (3.3-12.3); RBC Red Blood Cell Count 3.63 M/uL (4.33-5.43)
[2018-06-06 05:08] LABS: BUN Blood Urea Nitrogen 15 mg/dL (7-18); Bicarbonate 28 mmol/L (21-32); Glucose Level 95 mg/dL (74-106); Magnesium 2.1 mg/dL (1.8-2.4); Potassium 4.1 mmol/L (3.5-5.1); Sodium Level 141 mmol/L (136-145)
[2018-06-06 05:35] LABS: Ferritin 12.8 ng/mL (26-388)
[2018-06-06 05:38] LABS: Urine Appearance CLEAR; Urine Bilirubin NEGATIVE (NEG); Urine Blood NEGATIVE (NEG); Urine Color YELLOW; Urine Glucose NEGATIVE (NEG); Urine Protein NEGATIVE (NEG); Urine Urobilinogen 0.2 mg/dL (0.2-1.0); Urine pH 5.5 (5.0-7.0)
[2018-06-06 05:46] LABS: Urine Microscopic Reflex NO UMIC
[2018-06-06 06:24] VITALS: BP 127/76; TEMP 97.2
[2018-06-06 06:35] LABS: Hematocrit 25.9 % (39.6-49.0)
[2018-06-06 07:35] LABS: Anisocytosis 1+; Blood Morphology Comment NOTED (NOT SEEN); Hypochromasia 1+; Platelet Estimate ADEQ; Urine White Blood Cell Casts OK
--- NOTE | 2018-06-06 08:35 | P.DS ---
Admission Date: 06/05/18 Discharge Date: 06/06/18 Primary Care Provider: Dr. Tolentino; GI-Dr. Garcia; Surgery-Dr. Julian Disposition: ROUTINE DISCHARGE Discharge Condition: GOOD Reason for Admission: Anemia Consultations: None Procedures: Impression: Acute on chronic anemia secondary to lower GI bleed related to colon cancer complicated with history of ulcerative colitis along with Iron and B12 deficiency Hypertension Brief History of Present Illness: 63-year-old Japanese [place] male presented to the emergency room after he was told that he had abnormal lab. Patient has history of colon cancer and ulcerative colitis. He went to see his surgeon for preop. Patient has been reporting increasing rectal bleeding over the last several weeks. Patient is in process of getting colorectal surgery at [facility] on June 24. In April he was cleared by cardiology with recent heart catheterization. Patient also reports that he has received blood transfusion to maintain his hemoglobin. He had lab drawn yesterday. It was reported as a low. He was told to go to the ER for further evaluation. Patient was admitted for transfusion Hospital Course: Patient presented with acute on chronic anemia secondary to lower GI bleed related to colon cancer complicated with history of ulcerative colitis. Patient has received transfusion in the past. He is seen by colorectal surgery. Surgery is planned for June 24. He is to have a colonoscopy next week. Patient received 2 units of blood. Hemoglobin stable at this time. Patient found to have iron and B12 deficiency. Rectal bleeding stabilized. At discharge patient will continue with iron and B12 supplementation. Recommend to recheck lab-CBC on Saturday. Patient may require outpatient transfusion prior to his colonoscopy next week. He is to follow up with Colorectal surgery at that time. Recommend to follow up with his PCP on Saturday to further address. Patient with underlying hypertension. Patient recently seen by cardiology for cardiac clearance in preparation for surgery. Patient has been cleared for surgery. Vital Signs/Physical Exam: Temp Pulse Resp BP Pulse Ox 97.2 F 72 18 127/76 100 06/06/18 04:00 06/06/18 04:00 06/06/18 04:00 06/06/18 04:00 06/06/18 04:00 General: Alert, In no apparent distress, Oriented x3, Cooperative HEENT: Atraumatic Neck: Supple Respiratory: Clear to auscultation bilaterally, Normal air movement Cardiovascular: Normal pulses, Regular rate/rhythm Gastrointestinal: Normal bowel sounds, Soft and benign, Non-distended, No tenderness, No masses, No rebound, No guarding Musculoskeletal: No erythema, No tenderness, No warmth Integumentary: No tenderness/swelling, No erythema, No warmth, No cyanosis Neurological: Normal speech, Normal strength at 5/5 x4 extr, Normal tone, Normal affect Laboratory Data at Discharge: WBC 5.6 K/uL (4.3-10.9) 06/06/18 03:54 Hgb 8.0 g/dL (13.6-17.9) L 06/06/18 05:36 Hct 25.9 % (39.6-49.0) L 06/06/18 05:36 Plt Count 222 K/uL (152-406) 06/06/18 03:54 Sodium 141 mmol/L (136-145) 06/06/18 03:54 Potassium 4.1 mmol/L (3.5-5.1) 06/06/18 03:54 BUN 15 mg/dL (7-18) 06/06/18 03:54 Creatinine 0.76 mg/dL (0.55-1.3) 06/06/18 03:54 Glucose 95 mg/dL (74-106) 06/06/18 03:54 Magnesium 2.1 mg/dL (1.8-2.4) 06/06/18 03:54 Home Medications: Colestipol HCl [Colestid] 1 tab PO TID 06/05/18 Irbesartan [Avapro] 1 tab PO DAILY 06/05/18 Mesalamine 1 tab PO BID 06/05/18 Mirabegron [Myrbetriq] 1 tab PO DAILY 06/05/18 Silodosin 1 tab PO DAILY 06/05/18 Cyanocobalamin (Vitamin B-12) [Vitamin B-12] 1,000 mcg PO DAILY #90 tablet 06/06 Ferrous Sulfate [Iron] 325 mg PO BID #60 tablet 06/06/18 New Medications: Cyanocobalamin (Vitamin B-12) [Vitamin B-12] 1,000 mcg PO DAILY #90 tablet Ferrous Sulfate [Iron] 325 mg PO BID #60 tablet Patient Discharge Instructions: 1. Patient will follow up with his PCP on Saturday to follow up this hospitalization. 2. Patient presented with acute on chronic anemia secondary to lower GI bleed related to colon cancer complicated with history of ulcerative colitis. Patient has received transfusion in the past. He is seen by colorectal surgery. Surgery is planned for June 24. He is to have a colonoscopy next week. Patient received 2 units of blood. Hemoglobin stable at this time. Patient found to have iron and B12 deficiency. Rectal bleeding stabilized. At discharge patient will continue with iron and B12 supplementation. Recommend to recheck lab-CBC on Saturday. Patient may require outpatient transfusion prior to his colonoscopy next week(Saturday). He is to follow up with Colorectal surgery at that time. Recommend to follow up with his PCP on Saturday to further address. 3. Patient with underlying hypertension. Patient will continue with his current medication. Patient recently seen by cardiology for cardiac clearance in preparation for surgery. Patient has been cleared for surgery. Diet: GI soft Activity: Ad kike Time spent managing pt's care (in minutes): 55
[2018-06-06] MEDS ORDERED: PANTOPRAZOLE 40 MG INJ IVP SCH (09:00)
== END 2018-06-06 11:17 | disposition home or self-care (01) ==
LOC: ER 17:17 → ERHOLD 18:19 → 2ND 21:12
PROVIDERS: ADMIT Family Medicine; ATTEND Family Medicine
PROC: 30233N1 Transfusion of Nonautologous Red Blood Cells into Peripheral Vein, Percutaneous Approach (ICD-10-PCS; principal; 2018-06-05)
DX: K62.5 Hemorrhage of anus and rectum (principal); C18.9 Malignant neoplasm of colon, unspecified; D51.9 Vitamin B12 deficiency anemia, unspecified; D50.8 Other iron deficiency anemias; D62 Acute posthemorrhagic anemia; I10 Essential (primary) hypertension
CPT/HCPCS: 36415; 80048; 81003; 82607; 82728; 83540; 83735; 84466; 85014; 85018; 85025; 86850; 86900; 86901; 87045; 87046; 87493; 99285; G0378; J1940; J2405; P9016

== ENCOUNTER 2019-02-11 08:58 | Day surgery (SDC) | payer BC ==
[2019-02-11] MEDS ORDERED: Ringers Lactate 1,000 ML IV ONE (09:06)
[2019-02-11] MEDS ORDERED: CEFAZOLIN/SWI 1gm 1 GM/10 ML SYR ONE (09:09)
[2019-02-11] MEDS ORDERED: FENTANYL CITR 100 MCG/2 ML ONE (09:43)
[2019-02-11] MEDS ORDERED: PROPOFOL 200 MG/20 ML VIAL IV ONE (09:44)
[2019-02-11] MEDS ORDERED: MIDAZOLAM HCL 2 MG/2 ML INJ ONE (09:44)
[2019-02-11] MEDS ORDERED: ONDANSETRON 4 MG/2 ML VIAL ONE ×2 (09:45→10:39)
[2019-02-11] MEDS ORDERED: LIDOCAINE 2% MPF 5 ML VIAL ONE (09:45)
[2019-02-11] MEDS ORDERED: NS 0.9% VIAL 20 ML ONE (09:49)
[2019-02-11] MEDS ORDERED: SUCCINYLCHOLINE 20 MG/ML (10 ML) IV ONE (09:57)
[2019-02-11] MEDS: LIDOCAINE 1% MPF 30 ML VIAL ONE ×2 (10:05→10:29)
[2019-02-11] MEDS ORDERED: EPHEDRINE SULF 50 MG/ML VIAL ONE (10:34)
[2019-02-11] MEDS: HEPARIN 5000 UNIT/ML 1 ML VIAL ONE ×2 (10:37→10:42)
--- NOTE | 2019-02-11 10:59 | RAD REPORT ---
EXAM DESCRIPTION: RAD - Fluoroscopy <1 Hour - 02/11/2019 10:54 am CLINICAL HISTORY: Venous catheter insertion. PORT A CATH PLACEMENT COMPARISON: No comparisons FINDINGS: Fluoroscopic imaging is submitted from placement of a venous catheter. Details of the pro cedure not available. Fluoroscopy time: 0.6 minutes.
--- NOTE | 2019-02-11 11:27 | RAD REPORT ---
EXAM DESCRIPTION: RAD - Chest Single View - 02/11/2019 11:21 am CLINICAL HISTORY: S/P PORT-A-CATH INSERTION Chest pain. COMPARISON: Abdomen 1 View (KUB) dated 06/04/2018; Chest Pa And Lat (2 Views) dated 04/24/2018; Chest P a And Lat (2 Views) dated 12/27/2016; Abdomen 1 View (KUB) dated 09/16/2015 FINDINGS: Portable technique limits examination quality. Right-sided venous catheter is in place with tip in the SVC. No postprocedure pneumothorax. IMPRESSION: No postprocedure pneumothorax.
[2019-02-11] MEDS ORDERED: HYDROCODONE/APAP 7.5/325 MG TAB ONE (12:08)
[2019-02-11 12:29] VITALS: BP 115/59; TEMP 97; O2SAT 100
--- NOTE | 2019-02-11 21:30 | OP ---
Date of Procedure: 02/11/2019 Surgeon: Geraldo Zavala MD Preoperative Diagnosis: Rectal cancer. Postoperative Diagnosis: Rectal cancer. Procedure: Placement of right IJ Port-A-Cath and interpretation of intraoperative fluoroscopy. Estimated Blood Loss: Minimal. Specimen: None. Findings: Normal anatomy. Anesthesia: General. Complications: None. Disposition: The patient tolerated the procedure in stable condition, taken to Recovery in good gene ral condition. Procedure In Detail: The patient was brought to the OR and placed in supine position. General anest hesia was begun. Patient was prepped and draped in usual sterile fashion. Lidocaine 1% infiltrated locally. An 18-gauge needle was used to access the right IJ vein. Guidewire was passed. Position w as confirmed with fluoroscopy. A 3 cm counterincision made on the right anterior chest. Pocket crea sakina. Tunneling device was used to tunnel the catheter between the 2 wounds and then Seldinger techni que was used, tip of the catheter was placed in the SVC under fluoroscopy. Cut to appropriate size, attached to the Port-A-Cath device. Port-A-Cath device was attached to the subcutaneous tissue with 3-0 Vicryl. 3-0 chromic used to approximate the subcutaneous tissue and close the skin. Then cathet er port flushed with heparin, packed with heparin, with good blood flow and then sterile dressing was applied. The patient was awakened and taken to Recovery in good general condition. Chest x-ray has been ordered. If okay, the patient will be discharged to home. Disposition: Home. Condition: Stable. Discharge Instructions: Resume home medications and diet. Activity as tolerated. No heavy lifting. Remove outer dressing in 2 days. Shower. Keep wound clean and dry. Keep Steri-Strips on at all t imes. Follow up in my office in 2 weeks, call for appointment. [facility] up with [facility]. Jasper peters No. 3 one tablet p.o. q.4 p.r.n. pain. /MODL Voice ID: [id number] Report ID: [id number]
== END 2019-02-11 12:44 | disposition home or self-care (01) ==
LOC: OR 08:58
PROVIDERS: ATTEND Surgery
PROC: 0JH63WZ Insertion of Totally Implantable Vascular Access Device into Chest Subcutaneous Tissue and Fascia, Percutaneous Approach (ICD-10-PCS; principal; 2019-02-11 10:30)
DX: C20 Malignant neoplasm of rectum (principal); I10 Essential (primary) hypertension; E66.01 Morbid (severe) obesity due to excess calories; Z68.41 Body mass index [BMI] 40.0-44.9, adult; Z90.49 Acquired absence of other specified parts of digestive tract; Z83.3 Family history of diabetes mellitus; Z82.49 Family history of ischemic heart disease and other diseases of the circulatory system
CPT/HCPCS: 71045; 76000; 36561; J2704; J0330; J1644 ×2; J2250; J3010; J0690; J7120; J2405 ×2; C1788

== ENCOUNTER 2019-05-07 08:49 | Day surgery (SDC) | payer BC ==
[2019-05-06 17:16] LABS: Absolute Lymphocytes (CBC) 0.9 K/uL (0.7-4.9); Basophils % 1.3 % (0-1.3); Hematocrit 35.1 % (39.6-49.0); Lymphocytes % 18.6 % (15.3-44.8); MPV 10.3 fL (7.6-11.3); RBC Red Blood Cell Count 3.97 M/uL (4.33-5.43)
[2019-05-07] MEDS ORDERED: CEFAZOLIN/SWI 1gm 1 GM/10 ML SYR ONE (08:58)
[2019-05-07] MEDS ORDERED: Ringers Lactate 1,000 ML IV ONE (08:58)
[2019-05-07] MEDS ORDERED: propofoL 200 MG/20 ML VIAL IV ONE (09:42)
[2019-05-07] MEDS ORDERED: FENTANYL CITR 100 MCG/2 ML ONE (09:42)
[2019-05-07] MEDS ORDERED: MIDAZOLAM HCL 2 MG/2 ML INJ ONE (09:42)
[2019-05-07] MEDS ORDERED: BUPIVACAINE 0.5% PF 10 ML VIAL ONE (09:46)
[2019-05-07] MEDS ORDERED: LIDOCAINE 1% 20 ML MDV ONE (09:46)
[2019-05-07] MEDS ORDERED: LIDOCAINE 2% MPF 5 ML VIAL ONE ×2 (09:48→10:08)
[2019-05-07] MEDS ORDERED: ONDANSETRON 4 MG/2 ML VIAL ONE ×2 (09:48→10:56)
[2019-05-07] MEDS ORDERED: Mastisol Adhesive Liq ONE (10:20)
[2019-05-07] MEDS: HYDROMORPHONE HCL 1 MG/ML INJ ONE ×2 (10:54→11:02)
[2019-05-07 12:54] VITALS: BP 110/54; TEMP 96.5; O2SAT 100
--- NOTE | 2019-05-07 21:25 | OP ---
Date of Procedure: 05/07/2019 Surgeon: Geraldo Zavala MD Rubber Mixer: SAGAR Contreras. Preoperative Diagnosis: Rectal cancer. Postoperative Diagnosis: Rectal cancer. Procedure: Removal of right chest Port-A-Cath. Estimated Blood Loss: Minimal. Specimen: Port-A-Cath device. Findings: Normal anatomy. Anesthesia: MAC. Complications: None. Disposition: Patient tolerated the procedure in stable condition, taken to Recovery in good general condition. Description Of Procedure: Patient was brought to the OR and placed in supine position. MAC anesthes ia begun. Patient was prepped and draped in the usual sterile fashion. Lidocaine 1% infiltrated loc ally. A 15-blade was used to make a 2 cm incision over the previous incision on the right anterior c hest. Subcutaneous tissue was divided. Port-A-Cath device was identified and freed from the surroun ding tissue with sharp and blunt dissection and removed and sent to Pathology for identification. Wo und was irrigated. Bleeding was controlled with cautery. 3-0 was chromic used for subcutaneous tiss ue and close the skin. Sterile dressing was applied. Patient was awakened and taken to Recovery in good general condition. Discharge Note: Patient will go to day surgery and home when stable. Disposition: Home. Condition: Stable. Discharge Instructions: Resume home medications and diet. Activity as tolerated. No heavy lifting. Remove outer dressing in 2 days. Shower. Keep wound clean and dry. Keep Steri-Strips on at all t imes. Follow up in my office in 2 weeks. Call for appointment. Tylenol No. 3 one tablet p.o. q.4. p.r.n. pain. /MODL Voice ID: [id number] Report ID: [id number]
== END 2019-05-07 12:00 | disposition home or self-care (01) ==
LOC: OR 08:49
PROVIDERS: ATTEND Surgery
PROC: 0JPT0WZ Removal of Totally Implantable Vascular Access Device from Trunk Subcutaneous Tissue and Fascia, Open Approach (ICD-10-PCS; principal; 2019-05-07 10:45)
DX: Z45.2 Encounter for adjustment and management of vascular access device (principal); C20 Malignant neoplasm of rectum; I10 Essential (primary) hypertension; G47.33 Obstructive sleep apnea (adult) (pediatric); E66.01 Morbid (severe) obesity due to excess calories; Z68.41 Body mass index [BMI] 40.0-44.9, adult
CPT/HCPCS: 85025; 36415; 88300; 36590; J2704; J2250; J3010; J1170; J0690; J7120; J2405 ×2